=== PATIENT | male | born 1955 | race Caucasian/White ===

== ENCOUNTER 2016-10-13 13:36 | Emergency (ER) | payer OTHER ==
[~2016-10-13] VITALS: Ht 170.2 cm; Wt 80.0 kg
[~2016-10-13 13:36] MED LIST: Z.0.NO CURRENT MEDS
[2016-10-13] MEDS ORDERED: LORazepam 2 MG TAB PO PRN (14:00)
[2016-10-13] MEDS ORDERED: LORazepam 1 MG TAB PO PRN (14:00)
[2016-10-13] MEDS ORDERED: LORazepam 2 MG/ML VIAL IV PUSH PRN ×4 (14:00)
[2016-10-13] MEDS ORDERED: FLUMAZENIL 0.5 MG/5 ML VIAL IV PUSH PRN (14:00)
--- NOTE | 2016-10-13 14:00 | PD ---
HPI Chief Complaint: Alcohol/Drug Intoxication Time Seen by Provider: 13:52 Travel History International Travel<30 days: No Contact w/Intl Traveler<30days: No History of Present Illness HPI 61-year-old male presents the emergency department via [place] [employer] under the Castaneda's act for severe EtOH intoxication. Castaneda's act reads that he was located at her residence that he does not belong at. The patient stated that he would been drinking there all night with the homeowner, however the resident's is currently vacant. The homeowner could not be contacted. Patient is reportedly severely intoxicated. The officer states he could not hold an actual conversation and could barely stand when he was brought in. Patient has no known drug allergies. PFSH Past Medical History Diminished Hearing: No Social History Alcohol Use: Yes ("SOMETIMES") Tobacco Use: No Substance Use: No Allergies-Medications (Allergen,Severity, Reaction): Coded Allergies: No Known Allergies (Verified , 01/16/11) Reported Meds & Prescriptions Reported Meds & Active Scripts Active Reported No Current Meds (Miscellaneous Medication) Misc Review of Systems ROS Limitations: Intoxication Except as stated in HPI: all other systems reviewed are Neg General / Constitutional: No: Fever Eyes: No: Visual changes HENT: No: Headaches Cardiovascular: No: Chest Pain or Discomfort Respiratory: No: Shortness of Breath Gastrointestinal: No: Abdominal Pain Genitourinary: No: Dysuria Musculoskeletal: No: Pain Skin: No Rash Neurologic: No: Weakness Psychiatric: No: Depression Endocrine: No: Polydipsia Hematologic/Lymphatic: No: Easy Bruising Physical Exam Exam Limitations: Intoxication Narrative GENERAL: Patient is visibly intoxicated but cooperative. SKIN: Warm and dry. Normal color. Normal turgor. No signs of trauma. HEAD: Atraumatic. Normocephalic. EYES: Pupils equal and round. No scleral icterus. No injection or drainage. ENT: No nasal bleeding or discharge. Mucous membranes pink and moist. Thanks is clear. Airway is patent. NECK: Trachea midline. Supple. CARDIOVASCULAR: Regular rate and rhythm. RESPIRATORY: No accessory muscle use. Clear to auscultation. Breath sounds equal bilaterally. GASTROINTESTINAL: Abdomen soft, non-tender, nondistended. Hepatic and splenic margins not palpable. MUSCULOSKELETAL: Extremities without clubbing, cyanosis, or edema. No obvious deformities. NEUROLOGICAL: Awake and alert. No obvious cranial nerve deficits. Motor grossly within normal limits. Five out of 5 muscle strength in the arms and legs. Normal speech. PSYCHIATRIC: Appropriate mood and affect; insight and judgment normal. Data Data Last Documented VS Vital Signs Date Time Temp Pulse Resp B/P (MAP) Pulse Ox O2 Delivery O2 Flow Rate FiO2 10/13/16 14:17 98.2 71 20 160/84 (109) 96 Orders Orders Alcohol Withdrawal Asmt-Ciwa [id number] (10/13/16 14:00) Flumazenil Inj (Romazicon Inj) (10/13/16 14:00) Lorazepam (Ativan) (10/13/16 14:00) Lorazepam Inj (Ativan Inj) (10/13/16 14:00) Lorazepam (Ativan) (10/13/16 14:00) Lorazepam Inj (Ativan Inj) (10/13/16 14:00) Lorazepam Inj (Ativan Inj) (10/13/16 14:00) Lorazepam Inj (Ativan Inj) (10/13/16 14:00) MDM Medical Decision Making Medical Screen Exam Complete: Yes Emergency Medical Condition: Yes Medical Record Reviewed: Yes Differential Diagnosis Acute intoxication. Chronic EtOH abuse. [employer] act. Narrative Course Patient appears medically stable although intoxicated at time of exam. Patient is requesting to call his so that she can come and get him. CIWA is put in place. 1445 hrs. patient's came and picked him up, and he was able to ambulate to the car. Diagnosis Primary Impression: ETOH abuse Referrals: [facility] (Out patient) Patient Instructions: General Instructions Additional Instructions: Patient is felt to be medically stable for discharge to his 's custody. Recommend follow-up with Dickson Martinez for EtOH abuse. Med/Other Pt SpecificInfo: No Meds Exist/No RX given Disposition: 01 DISCHARGE HOME Condition: Stable Chris Carrasco Oct 13, 2016 14:00
[2016-10-13 14:17] VITALS: BP 160/84; PULSE 71; RESP 20; TEMP 98.2; O2SAT 96
== END 2016-10-13 15:21 | disposition home or self-care (01) ==
LOC: NEPD 13:36
DX: Z02.89 Encounter for other administrative examinations (principal); F10.129 Alcohol abuse with intoxication, unspecified
CPT/HCPCS: 99284